=== PATIENT | male | born 1970 | race Caucasian/White ===

== ENCOUNTER 2016-04-02 22:11 | Emergency (ER) | payer OTHER ==
[2016-04-03] MEDS ORDERED: KETOROLAC TROMETHAMINE 60 MG/2 ML VIAL IM ONE ×2 (00:06→00:09)
--- NOTE | 2016-04-03 00:08 | ERNOTE ---
Lower Extremity HPI - General Lower Extremities Pain: foot: right Time Seen by Provider: 04/03/16 00:02 Source: patient Exam Limitations: no limitations - Immun/Allergies/Home Medications Immunizations: IMMUNIZATION HX Immunizations Up to Date Yes History of Influenza Vaccine No Hx Pneumococcal Vaccination No Allergies/Adverse Reactions: Allergies Allergy/AdvReac Type Severity Reaction Status Date / Time No Known Allergies Allergy Verified 10/08/15 17:34 Home Medications: HOME MEDICATIONS Naproxen [Naprosyn] 500 mg PO BID 10/08/15 [Last Taken Unknown] Sertraline HCl [Zoloft] 100 mg PO BID 10/08/15 [Last Taken Unknown] - History of Present Illness Narrative: began to have pain in his right foot 2 days ago. Having difficulty walking Occurred: last week Method of Injury: Reports: no apparent injury Modifying Factors - (Improves): Reports: rest, other - warmth Modifying Factors - (Worsens): Reports: cold therapy, jarring, movement Associated Symptoms: Reports: unable to bear weight Review of Systems - Review of Systems Constitutional: Present: no symptoms reported EYE: Present: no symptoms reported ENT: Present: no symptoms reported Respiratory: Present: no symptoms reported Cardiology: Present: no symptoms reported Gastrointestinal/Abdominal: Present: no symptoms reported - Patient's Past Medical History Patient History - Medical: Arthritis, Bipolar, GERD, Seizures Patient History - Cardiac/Respiratory: No pertinent hx Patient History - Cancer: No Hx of Cancer Patient History - Surgical Procedures: Total Knee Replacement Patient History - Other: None - Social History Living Situations: home Abuse History: No History of abuse Psych History: Hx of Bipolar Disorder Smoking Status: Current every day smoker Patient requests Smoking Cessation Consult: No Initiate information on Smoking Cessation: No Alcohol Use: none Drug Use: marijuana - Immunizations Immunizations Up to Date: Yes Hx Pneumococcal Vaccination: No History of Influenza Vaccine: No Physical Exam - Physical Exam General Appearance: Present: wd/wn, alert, mild distress Eye Exam: Normal inspection: bilateral Ears, Nose, Throat: Present: normal ENT inspection Respiratory: Present: no respiratory distress, no accessory muscle use Extremity Exam: Present: decreased range of motion - right forefoot, joint redness - over the 1st TMT joint Neurological Exam: Present: alert, oriented, normal mood/affect Skin Exam: Present: other - erythema of medial right foot ED Progress - Results and Orders Patient's Lab Results:: I have reviewed the patient's lab results. Results and Orders: Laboratory Tests 04/03/16 04/03/16 04/03/16 00:15 00:15 00:15 WBC 12.2 H Hgb 15.3 Hct 44.0 Plt Count 225 ESR 45 H Uric Acid 8.8 H C-Reactive Prot, Quant 6.1 H - Vital Signs Patient's Vital Signs:: I have reviewed the patient's vital signs. Vital Signs: Vital Signs 04/02/16 22:40 Temperature 37.3 C Pulse Rate 95 Respiratory 18 Rate Blood Pressure 136/82 O2 Sat by Pulse 97 Oximetry - X-Ray X-Ray #1 X-Ray: foot - right Interpretation: Interp. by me X-ray Comments: No acute changes - Progress/Reassessment Chief Complaint: Lower Extremity Pain/ Injury Departure Clinical Impression: Gouty arthropathy - Departure Disposition: Home Follow Up Needed Condition: Good Instructions: Gout, [id number] Additional Instructions: Take your naproxen on a regular basis. keep the foot warm. See your regular doctor early next week for further evaluation and treatment Referrals: [Primary Care Provider] -
[2016-04-03 00:22] LABS: Hemoglobin 15.3 gm/dL (13.5-18.0); Mean Cell Volume 87.5 fl (78-100); Mean Corpuscular Hemoglobin 30.4 pg (27-31); Mean Corpuscular Hgb Conc 34.8 g/dl (32-36); Mean Platelet Volume 10.2 fl (6.0-9.5); Neutrophil # 8.2 K/mm3 (1.3-6.0); Neutrophil % 67.4 % (42-75.0); Platelet Count 225 K/mm3 (150-450); Red Blood Count 5.03 M/mm3 (4.7-6.0); Red Cell Distribution Width 13.7 % (11.5-14.0); White Blood Count 12.2 K/mm3 (4.0-10.5)
[2016-04-03 00:34] LABS: CRP 6.1 mg/dL (0.0-0.9)
[2016-04-03 00:38] LABS: Uric Acid 8.8 mg/dL (2.6-7.2)
[2016-04-03] MEDS ORDERED: COLCHICINE 0.6 MG TABLET PO ONE (01:32)
[2016-04-03] MEDS ORDERED: COLCHICINE 0.6 MG TABLET ONE (01:37)
[2016-04-03 01:48] VITALS: BP 143/94
== END 2016-04-03 01:45 | disposition home or self-care (01) ==
LOC: ER 22:11
DX: M10.9 Gout, unspecified (principal); Z72.0 Tobacco use